=== PATIENT | male | born 1960 ===

== ENCOUNTER → 2017-10-12 | Outpatient (REF) | LOC: ZLAB.WCH 12:18 | DX: Z01.89 Encounter for other specified special examinations (principal) ==

== ENCOUNTER → 2017-10-20 | Outpatient (REF) | LOC: ZLAB.WCH 10:45 | DX: Z01.89 Encounter for other specified special examinations (principal) ==

== ENCOUNTER → 2017-10-26 | Outpatient (REF) | LOC: ZLAB.WCH 11:53 | DX: Z01.89 Encounter for other specified special examinations (principal) ==

== ENCOUNTER → 2017-11-01 | Outpatient (REF) | LOC: ZLAB.WCH 17:58 | DX: Z01.89 Encounter for other specified special examinations (principal) ==

== ENCOUNTER → 2017-11-09 | Outpatient (REF) | LOC: ZLAB.WCH 11:15 | DX: Z01.89 Encounter for other specified special examinations (principal) ==